=== PATIENT | female | born 2000 | race Caucasian/White ===

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

== ENCOUNTER → 2023-05-17 | Outpatient (CLI) | payer OTHER ==
[~2023-05-17] MED LIST changes: +PRENATAL TABLE1 EAC2 PO
[2023-05-19 01:10] LABS: CHLAMYDIA TRACHOMATIS, NAA Negative (Negative)
== END | disposition home or self-care (01) ==
LOC: LAB SHORT 11:30 → LAB 11:30
PROVIDERS: Family Medicine
DX: Z34.81 Encounter for supervision of other normal pregnancy, first trimester (principal); Z3A.01 Less than 8 weeks gestation of pregnancy
CPT/HCPCS: 87086; 87491; 87591

== ENCOUNTER → 2023-07-25 | Outpatient (CLI) | payer OTHER | LOC: LAB SHORT 12:00 → LAB 12:00 | DX: R30.0 Dysuria (principal) | CPT/HCPCS: 87086 ==

== ENCOUNTER → 2023-12-06 | Outpatient (CLI) | payer OTHER | LOC: LAB 16:40 → LAB SHORT 16:40 | DX: Z34.83 Encounter for supervision of other normal pregnancy, third trimester (principal); Z3A.36 36 weeks gestation of pregnancy | CPT/HCPCS: 87081; 87150 ==

== ENCOUNTER 2024-01-08 18:55 | Inpatient (IN) | payer OTHER ==
[~2024-01-08] VITALS: Ht 167.6 cm; Wt 61.8 kg
[2024-01-08 19:19] VITALS: BP 130/71
[2024-01-08] MEDS ORDERED: Lactated Ringer's 1,000 ML IV ONE (19:39)
[2024-01-08] MEDS ORDERED: Oxytocin 10 Unit / ML Vial IM SCH (19:40)
[2024-01-08] MEDS ORDERED: Misoprostol 200 MCG Tab PR SCH (19:40)
[2024-01-08] MEDS ORDERED: Bupivacaine HCl 2.5 MG/ML 10ML P/F Injection XX SCH (19:40)
[2024-01-08] MEDS ORDERED: Methylergonovine Maleate 0.2MG / ML 1ML Amp IM SCH (19:40)
[2024-01-08] MEDS ORDERED: Castor Oil 59.146 ML BTL TOP SCH (19:40)
[2024-01-08] MEDS ORDERED: Bupivacaine 0.5% HCl 5 MG/ML 30MLVIAL XX SCH (19:40)
[2024-01-08] MEDS ORDERED: Lactated Ringer's 1,000 ML IV PRN ×2 (19:40→19:50)
[2024-01-08] MEDS ORDERED: Lidocaine HCl 1% 30 ML SDV XX SCH (19:40)
[2024-01-08] MEDS ORDERED: LR Oxytocin 20 Units 1,000 ML IV SCH ×2 (19:40→19:50)
[2024-01-08 19:47] LABS: BASOPHILS ABSOLUTE AUTO 0.03 K/mm3 (0.00-0.23); BASOPHILS PERCENT AUTO 0 % (0-2); EOSINOPHILS ABSOLUTE AUTO 0.01 K/mm3 (0.00-0.68); EOSINOPHILS PERCENT AUTO 0 % (0-6); Hematocrit 30.7 % (33.0-51.0); Hemoglobin 10.2 g/dL (11.5-16.0); IMMATURE GRAN ABSOLUTE AUTO 0.02 K/mm3 (0.00-0.10); IMMATURE GRAN PERCENT AUTO 0 % (0-1); LYMPHOCYTES ABSOLUTE AUTO 2.55 K/mm3 (0.84-5.20); LYMPHOCYTES PERCENT AUTO 32 % (21-46); MONOCYTES PERCENT AUTO 8 % (4-13); Mean Corpuscular HGB 28.6 pg (26.0-34.0); Mean Corpuscular HGB Conc 33.2 g/dL (31.5-36.5); Mean Corpuscular Volume 86 fL (80-100); Mean Platelet Volume 10.9 fL (9.1-12.4); NEUTROPHILS ABSOLUTE AUTO 4.77 K/mm3 (1.96-9.15); NEUTROPHILS PERCENT AUTO 60 % (41-73); Platelet Count 189 K/mm3 (150-400); RDW Coefficient Variation 13.2 % (11.7-14.2); RDW Standard Deviation 41.6 fL (35.1-46.3); Red Blood Cell Count 3.57 M/mm3 (3.80-5.20); White Blood Cell Count 7.98 K/mm3 (4.00-11.30)
[2024-01-08] MEDS ORDERED: Misoprostol 25 MCG Tab VAG SCH (19:50)
[2024-01-08 21:07] VITALS: BP 115/61
[2024-01-08 22:10] VITALS: BP 128/73
[2024-01-09] VITALS (13 sets, daily range): BP systolic 110–141; BP diastolic 56–92
[2024-01-09] MEDS ORDERED: FentaNYL Citrate 50 MCG/ML 2 ML Injection IV PRN (02:15)
[2024-01-09] MEDS ORDERED: FentaNYL Citrate 50 MCG/ML 2 ML Injection ONE (02:16)
[2024-01-09] MEDS ORDERED: Ondansetron HCl 2 MG / ML 2ML Vial ONE (02:47)
[2024-01-09] MEDS ORDERED: Ondansetron HCl 2 MG / ML 2ML Vial IV PRN (02:55)
[2024-01-09] MEDS ORDERED: Misoprostol 200 MCG Tab PR PRN (05:15)
[2024-01-09] MEDS ORDERED: Lactated Ringer's 1,000 ML IV SCH (05:15)
[2024-01-09] MEDS ORDERED: Misoprostol 200 MCG Tab PO PRN (05:15)
[2024-01-09] MEDS ORDERED: Ibuprofen 400 MG Tab PO PRN (05:20)
[2024-01-09] MEDS ORDERED: OxyCODONE 5 mg/Acetamin 325 mg TABLET PO PRN (05:20)
[2024-01-09] MEDS ORDERED: Carboprost Tromethamine 250 MCG/ML 1ML Amp IM PRN (05:20)
[2024-01-09] MEDS ORDERED: Benzocaine Topical Anesthetic Spray 60GM TOP PRN (05:20)
[2024-01-09] MEDS ORDERED: Witch Hazel/Glycerin PADS TOP PRN (05:20)
[2024-01-09] MEDS ORDERED: Docusate Sodium 100 MG Cap PO PRN (05:20)
[2024-01-09] MEDS ORDERED: Zolpidem Tartrate 5 MG Tab PO PRN (05:20)
[2024-01-09] MEDS ORDERED: Ketorolac Tromethamine 30mg Vial IV SCH (06:00)
[2024-01-09] MEDS ORDERED: Lanolin Cream TOP SCH (07:15)
--- NOTE | 2024-01-09 07:42 | NUR ---
UP SHOWERED LINEN CHANGED AND VOIDED
[2024-01-09] MEDS ORDERED: Prenatal Vit/FE Fumarate/FA 1 Tab PO SCH (09:00)
--- NOTE | 2024-01-09 10:10 | NUR ---
ASSUMED CARE FROM AN RN
--- NOTE | 2024-01-09 11:25 | NUR ---
REPORT GIVEN TO AN RN - PT MANFREDY DIDN'T CALL
--- NOTE | 2024-01-09 14:50 | NUR ---
REPORT TO JOSSUE GILMAN
[2024-01-10 00:34] VITALS: BP 113/63
[2024-01-10 05:38] VITALS: BP 117/65
[2024-01-10 06:07] LABS: BASOPHILS ABSOLUTE AUTO 0.03 K/mm3 (0.00-0.23); BASOPHILS PERCENT AUTO 0 % (0-2); EOSINOPHILS ABSOLUTE AUTO 0.03 K/mm3 (0.00-0.68); EOSINOPHILS PERCENT AUTO 0 % (0-6); Hematocrit 31.6 % (33.0-51.0); Hemoglobin 10.4 g/dL (11.5-16.0); IMMATURE GRAN ABSOLUTE AUTO 0.05 K/mm3 (0.00-0.10); IMMATURE GRAN PERCENT AUTO 1 % (0-1); LYMPHOCYTES ABSOLUTE AUTO 2.78 K/mm3 (0.84-5.20); LYMPHOCYTES PERCENT AUTO 27 % (21-46); MONOCYTES ABSOLUTE AUTO 0.68 K/mm3 (0.16-1.47); MONOCYTES PERCENT AUTO 7 % (4-13); Mean Corpuscular HGB 29.1 pg (26.0-34.0); Mean Corpuscular HGB Conc 32.9 g/dL (31.5-36.5); Mean Corpuscular Volume 89 fL (80-100); Mean Platelet Volume 11.4 fL (9.1-12.4); NEUTROPHILS ABSOLUTE AUTO 6.67 K/mm3 (1.96-9.15); NEUTROPHILS PERCENT AUTO 65 % (41-73); Platelet Count 189 K/mm3 (150-400); RDW Coefficient Variation 13.2 % (11.7-14.2); RDW Standard Deviation 42.8 fL (35.1-46.3); Red Blood Cell Count 3.57 M/mm3 (3.80-5.20); White Blood Cell Count 10.24 K/mm3 (4.00-11.30)
[2024-01-10 07:42] VITALS: BP 121/58
--- NOTE | 2024-01-10 07:45 | NUR ---
EXPERIENCED MOM VONNIE DIAZ AND SELF CARE WELL. PLANS D/C HOME THIS MORNING. DENIES PAIN. NO QUESTIONS OR CONCERNS ON D/C TEACHING.
== END 2024-01-10 08:35 | disposition home or self-care (01) | DRG 807 ==
LOC: OBS 18:55 → BC 19:03
PROVIDERS: ADMIT Family Medicine
PROC: 10E0XZZ Delivery of Products of Conception, External Approach (ICD-10-PCS; principal; 2024-01-09)
DX: O48.0 Post-term pregnancy (principal); Z37.0 Single live birth; Z3A.40 40 weeks gestation of pregnancy
CPT/HCPCS: 36415; 81003; 85025; 86850; 86900; 86901; A9270; J1885; J2405; J2590; J3010; J7120